=== PATIENT | male | born 1970 | race Caucasian/White ===

== ENCOUNTER 2016-10-13 16:38 | Emergency (ER) | payer OTHER | END 2016-10-13 17:57 | disposition home or self-care (01) | LOC: FER 16:38 | DX: K74.60 Unspecified cirrhosis of liver (principal); E86.9 Volume depletion, unspecified; E11.9 Type 2 diabetes mellitus without complications; I10 Essential (primary) hypertension; I25.2 Old myocardial infarction; J44.9 Chronic obstructive pulmonary disease, unspecified; Z94.4 Liver transplant status; Z95.5 Presence of coronary angioplasty implant and graft | CPT/HCPCS: 71020; 87450; 87804; 87899; J0561 ==

== ENCOUNTER 2021-11-26 20:25 | Emergency (ER) | payer OTHER ==
[~2021-11-26 20:25] MED LIST: ASPIRIN EC81 M1 PO; CERTAGEN1 EACH PO; CLEOCIN300 MG PO; ETODOLAC500 MG PO; MOTRIN600 MG PO; PERCOCET 5-3251 EACH PO
[2021-11-26 22:58] LABS: BASOPHIL 0.9 % (0-2); EOSINOPHIL 1.3 % (0-5); HCT 47.4 % (42.0-52.0); HGB 15.6 g/dl (13.2-18.0); LYMPHOCYTE 23.1 % (15-48); MCH 31.5 pg (25.0-31.0); MCHC 32.9 g/dL (32.0-36.0); MCV 95.8 fL (78.0-100.0); MPV 10.3 fL (6.0-9.5); NEUTROPHIL 65.9 % (41-80); NRBC 0; PLT 287 K/uL (150-400); RBC 4.95 M/uL (4.70-6.00); RDW 13.9 % (11.5-14.0)
[2021-11-26 23:32] LABS: ALBUMIN 3.9 g/dL (3.4-5.0); BILIRUBIN - TOTAL 0.2 mg/dL (0.2-1.0); BUN/CREAT RATIO (CALC) 11.8 RATIO; CREATININE 1.78 mg/dL (0.67-1.17); GLOBULIN (CALCULATION) 3.9 g/dL; POTASSIUM 3.8 mmol/L (3.5-5.1); TOTAL PROTEIN 7.8 g/dL (6.4-8.2)
[2021-11-27] MEDS ORDERED: NORCO 5-325 TA1 EACH PO (00:14)
== END 2021-11-27 00:23 | disposition home or self-care (01) ==
LOC: FER 20:25
PROVIDERS: Internal Medicine
DX: S22.088A Other fracture of T11-T12 vertebra, initial encounter for closed fracture (principal); R07.81 Pleurodynia; I13.0 Hypertensive heart and chronic kidney disease with heart failure and stage 1 through stage 4 chronic kidney disease, or unspecified chronic kidney disease; I50.9 Heart failure, unspecified; N18.32 Chronic kidney disease, stage 3b; F17.210 Nicotine dependence, cigarettes, uncomplicated; V47.5XXA Car driver injured in collision with fixed or stationary object in traffic accident, initial encounter
CPT/HCPCS: 36415; 70450; 71260; 72125; 72128; 72131; 80053; 85025; G0480; J7030; Q9967